=== PATIENT | female | born 1960 | race Caucasian/White ===

== ENCOUNTER 2024-10-11 09:52 | Emergency (ER) | payer BC ==
[2024-10-11] MEDS: Ondansetron 4 MG Tab.DIS PO ONE (10:58)
== END 2024-10-11 13:00 | disposition home or self-care (01) ==
LOC: JP.ED 09:52
DX: S00.03XA Contusion of scalp, initial encounter (principal); I10 Essential (primary) hypertension; Z90.49 Acquired absence of other specified parts of digestive tract; Z90.710 Acquired absence of both cervix and uterus; Z79.899 Other long term (current) drug therapy; Z88.5 Allergy status to narcotic agent; Z88.6 Allergy status to analgesic agent; W00.0XXA Fall on same level due to ice and snow, initial encounter
CPT/HCPCS: 70450; 72125; 76377; 99284; Q0162